=== PATIENT | male | born 2005 | race Caucasian/White ===

== ENCOUNTER 2025-05-04 18:13 | Emergency (ER) | payer OTHER ==
[~2025-05-04] VITALS: Ht 172.7 cm; Wt 82.0 kg
[2025-05-04 18:15] VITALS: BP 162/80; TEMP 96.8; O2SAT 100
[2025-05-04] MEDS: MECLIZINE 25 MG TABLET PO ONE (18:43)
[2025-05-04] MEDS ORDERED: MECL-209 PO (19:38)
[2025-05-04] MEDS ORDERED: FLON1SPR NARES (19:38)
== END 2025-05-04 19:46 | disposition home or self-care (01) ==
LOC: M ED 18:13
DX: H65.01 Acute serous otitis media, right ear (principal); H81.4 Vertigo of central origin; Z79.899 Other long term (current) drug therapy